=== PATIENT | male | born 1955 | race Caucasian/White ===

== ENCOUNTER 2024-07-17 20:38 | Emergency (ER) | payer MEDICARE, MEDICAID, SELFPAY ==
[2024-07-17 20:52] VITALS: BP 113/75; PULSE 85; PULSE 99; RESP 19; RESP 20; TEMP 36.8; O2SAT 95; O2SAT 97; BMI 31.5
--- NOTE | 2024-07-17 21:14 | XR_ITS ---
Examination: Tibia-Fibula, right , 2 views Technique: Tibia-fibula AP lateral 2 views Date and time of exam: July 17, 2024, 221 hours INDICATIONS: Laceration to the lower leg today, lower leg pain FINDINGS: No acute fracture No dislocation No foreign body. IMPRESSION: No acute fracture
--- NOTE | 2024-07-17 21:15 | XR_ITS ---
Examination: CT brain head without contrast. 2-D sagittal coronal reconstructions Date and time of exam:July 17, 2024 10:19 PM Comparison March 21, 2019 INDICATIONS: Patient fell today with injury to the head, head pain CTDI: vol (mGy):48.4 DLP: (mGycm):938 Technique: Multiple CT axial sections of the brain have been obtained, 5 mm slice thickness. Contrast has not been administered. 2-D sagittal, coronal reconstructions have been obtained Low dose protocols were performed. One or more of the following dose reduction techniques were used; automated exposure control, adjustment of the mA and/or KV according to patient size, use of iterative reconstruction technique. Findings: No significant ventricular enlargement. Intra-axial or extra-axial hemorrhage density is not seen. No mass effect or midline shift Basal cisterns are not remarkable. Fourth ventricle is midline. Cranial vault intact. Impression: Negative for acute hemorrhage, mass effect or midline shift
--- NOTE | 2024-07-17 21:17 | PD.EDRME ---
Rapid Medical Screening Exam RME Arrival date/time: 07/17/24 20:38 68 yo m present to Ed for c/o GLF in shower today, cutting right lower leg? I have greeted and performed a focused initial assessment of this patient. A comprehensive ED assessment and evaluation of the patient, analysis of all test results, and completion of the medical decision making process will be conducted by additional ED providers. Chief Complaint: Wound/Laceration Time Seen by Provider: 07/17/24 20:43 Vital signs: Vital Signs Temperature 98.2 F 07/17/24 20:52 Pulse Rate 85 07/17/24 20:52 Respiratory Rate 20 07/17/24 20:52 Blood Pressure 113/75 07/17/24 20:52 Pulse Oximetry (%) 95 07/17/24 20:52 Oxygen Delivery Method Room Air 07/17/24 20:52
[2024-07-17] MEDS: ACETAMINOPHEN 325 MG TABLET 650 MG PO (23:02)
--- NOTE | 2024-07-18 | PD.EDWOUND ---
ED Wound/Laceration-RME/HPI General Chief Complaint: Wound/Laceration Stated Complaint: RIGHT LEG PAIN/FALL Time Seen by Provider: 07/17/24 20:43 Arrival date/time: 07/17/24 20:38 68 year old male present to emergency room with c/o of GLF today while in the shower injury right lower leg. patient report EMS came and dress the wound. LOCATION: leg SEVERITY: Symptoms are described as being severe with limitations on activities of daily living QUALITY: Symptoms are described as being dull or achy CONTEXT: GLF in bath tube DURATION/TIMING: The symptoms started approximately immediately prior to arrival ago and have been constant this then. ASSOCIATED SYMPTOMS: The patient is unable to identify any other associated symptoms. MODIFYING FACTORS: The patient is unable to identify any alleviating or aggravating symptoms. PERTINENT ROS: no fevers, no headache, no neck or chest pain, no unexplained nausea or vomiting, no focal neurological deficits REVIEW OF SYSTEMS: See History of Present Illness - with the exception of those mentioned in the history of present illness, all other systems reviewed and reported as negative GENERAL: In general the patient is awake, interactive, in an emergency department gurney. HEAD/EYES/EARS/NOSE/THROAT: normo-cephalic, atraumatic, mucus membranes are moist, anicteric, palpebral conjunctiva is pink, trachea is midline. CARDIOVASCULAR: regular rate and regular rhythm, no murmurs, heart sounds are not distant, strong pulses in all four extremities that are equal and symmetric bilateral upper and lower extremities, normal capillary refill. CHEST/PULMONARY: normal chest rise and fall, good air movement, clear to auscultation bilaterally, normal inspiratory to expiratory ratios without evidence of respiratory distress. NECK: No midline/Paraspinal tenderness, no step off ROM/Strenght intact No Kernig and bruzinski sign. No trauma ABDOMEN: soft, not tender, no masses appreciated BACK: normal range of motion without pain. NEUROLOGICAL: cranio-facial features are symmetric, moves all four extremities equally without obvious limitations or weakness. EXTREMITY: right lower leg multi abrasion with V shape 2.5 cm laceration no tenderness to palpation over the long bones or large joints of the bilateral upper extremities, no joint swelling, no joint erythema, no unilateral leg swelling and no peripheral edema. SKIN: warm, dry, well-perfused, no jaundice, no rash, no telangiectasias or petechia. PSYCH: calm, cooperative, no evidence of psychosis or agitation RME / HPI RME / HPI narrative: 07/17/24 20:38 68 yo m present to Ed for c/o GLF in shower today, cutting right lower leg? I have greeted and performed a focused initial assessment of this patient. A comprehensive ED assessment and evaluation of the patient, analysis of all test results, and completion of the medical decision making process will be conducted by additional ED providers. Related Data Home Medications ?Medication ?Instructions ?Recorded ?Confirmed fluticasone propionate 50 2 spray intranasal QDAY 09/07/17 03/21/19 mcg/actuation nasal spray,suspension lansoprazole 15 mg capsule,delayed 15 mg PO QDAY 09/07/17 03/21/19 release tamsulosin 0.4 mg capsule 0.4 mg PO QDAY 09/07/17 03/21/19 topiramate 50 mg tablet 50 mg PO BID 09/07/17 03/21/19 ropinirole 2 mg tablet 2 mg PO ONCE HS 12/16/18 03/21/19 simvastatin 20 mg tablet (Zocor) 20 mg PO QPM 12/16/18 03/21/19 Previous Rx's ?Medication ?Instructions ?Recorded aspirin 81 mg tablet,delayed 81 mg PO QDAY #30 tabs 09/10/17 release (Adult Aspirin Regimen) prednisone 50 mg tablet 50 mg PO QDAY #3 tabs 01/03/19 azithromycin 250 mg tablet See Rx Instructions PO .COMPLEX #6 04/20/22 (Zithromax) tabs loratadine 10 mg tablet 10 mg PO QDAY #30 tabs 04/20/22 promethazine-DM 6.25 mg-15 mg/5 mL 5 ml PO Q6H PRN cough #120 mL 04/20/22 oral syrup dextromethorphan-guaifenesin 10 10 ml PO Q8H PRN cough #500 mL 04/25/22 mg-100 mg/5 mL oral liquid ibuprofen 600 mg tablet 600 mg PO TID PRN pain #30 tabs 04/25/22 albuterol sulfate 1.25 mg/3 mL 1.25 mg (3 mL) inhalation Q6H PRN 01/01/23 solution for nebulization shortness of breath or wheezing #90 mL azithromycin 250 mg tablet See Rx Instructions PO .COMPLEX #6 01/01/23 tabs doxycycline hyclate 100 mg tablet 100 mg PO BID #14 tabs 02/22/23 prednisone 50 mg tablet 50 mg PO QDAY #5 tabs 02/22/23 prednisone 50 mg tablet 50 mg PO QDAY #5 tabs 02/22/23 cephalexin 500 mg capsule 500 mg PO Q8H #30 caps 07/17/24 Allergies Allergy/AdvReac Type Severity Reaction Status Date / Time ALLERGY PILLS Allergy Severe Anaphylaxis Uncoded 07/17/24 20:52 Course Quality Measures VTE prophylaxis Orders Category Date Time Status Wound Care X1 Care 07/17/24 23:[address] head/brain wo con Stat Exams 07/17/24 21:15 Completed XR tibia fibula RT 2V Stat Exams 07/17/24 21:14 Completed Acetaminophen Tab [Tylenol Tab] Med 07/17/24 21:29 Discontinued 650 mg PO X1 ONE cephALEXin [Keflex] Med 07/17/24 23:58 Once 500 mg PO X1 ONE Vital Signs Vital signs: Vital Signs Temperature 98.2 F 07/17/24 20:52 Pulse Rate 85 07/17/24 20:52 Respiratory Rate 20 07/17/24 20:52 Blood Pressure 113/75 07/17/24 20:52 Pulse Oximetry (%) 95 07/17/24 20:52 Oxygen Delivery Method Room Air 07/17/24 20:52 Procedures -ED Laceration Laceration 1: Site: lower extremity Size (cm): 2.5 Description: linear, flap, irregular and contaminated Local Anesthetic: lidocaine 1% Amount of anesthesia used (mL): 10 Pre-repair: wound explored, irrigated extensively, deep structures intact and extensive debridement Skin layer closed with: other (10 julia ) Wound / Laceration Patient data External records reviewed:: [facility] previous records Clinical information provided by:: patient and spouse Social determinants that could affect healthcare access:: none Patient has the following chronic illnesses:: as stated in chart How is presenting disease/condition affected by chronic disease/condition?: uneffected by Evaluation data The following diagnostics were reviewed and interpreted by me:: radiology exam(s) Lab and/or radiology exams considered but not ordered:: n/a Interpretation Summary: ct: no acute findings xray: no acute findings Medications / Prescriptions Medications or Prescriptions considered but not ordered:: n/a Medication administrations:: Medication Administration History Cephalexin HCl (Cephalexin 250 Mg Capsule) 500 mg PO X1 ONE Stop: 07/17/24 23:59 Discontinued Medications Acetaminophen (Acetaminophen 325 Mg Tablet) 650 mg PO X1 ONE Stop: 07/17/24 21:30 Last Admin: 07/17/24 23:02 Dose: 650 mg Documented By: LORI as stated above Consultations Consultation(s) initiated? (list below): No Diagnosis Wound Differential Diagnosis: laceration, abrasion, avulsion of skin and other (head bleed ) Most likely diagnosis given after review of the tests above:: leg laceration Admission Indicated Admission indicated?: not indicated Admission Request Was there a request for admission?: No Disposition Plan Disposition Plan: Discharge Discharge Attestation Discharge Attestation: The patient and all family members were given an opportunity to ask questions and understood the discharge instructions. Discharge instructions specifically effects, indications for sooner follow up or return to the emergency department, and the expected course of current diagnosis. Patient condition: Stable Discharge Plan Plan Patient Disposition: HOME (Self Care) Health Concerns: Return to ED or PCP in 14 days for staple removal Return to ED if symptoms worsen Prescriptions/Referrals Prescriptions/Med Rec: New cephalexin 500 mg capsule 500 mg PO Q8H Qty: 30 0RF No Action ropinirole 2 mg Tablet 2 mg PO ONCE HS Patient Comments: Take 1 tab by mouth once a day 1-3 hours before bedtime. simvastatin [Zocor] 20 mg Tablet 20 mg PO QPM tamsulosin 0.4 mg Capsule,Extended Release 24hr 0.4 mg PO QDAY lansoprazole 15 mg Capsule,Delayed Release(Dr/Ec) 15 mg PO QDAY fluticasone propionate 50 mcg/actuation [place],Suspension 2 spray INTRANASAL QDAY topiramate 50 mg Tablet 50 mg PO BID aspirin [Adult Aspirin Regimen] 81 mg tablet,delayed release (DR/EC) 81 mg PO QDAY Qty: 30 0RF prednisone 50 mg tablet 50 mg PO QDAY Qty: 3 0RF dextromethorphan-guaifenesin 10-100 mg/5 mL liquid 10 ml PO Q8H PRN (Reason: cough) Qty: 500 0RF ibuprofen 600 mg tablet 600 mg PO TID PRN (Reason: pain) Qty: 30 0RF doxycycline hyclate 100 mg tablet 100 mg PO BID Qty: 14 0RF prednisone 50 mg tablet 50 mg PO QDAY Qty: 5 0RF prednisone 50 mg tablet 50 mg PO QDAY Qty: 5 0RF promethazine-DM 6.25-15 mg/5 mL syrup 5 ml PO Q6H PRN (Reason: cough) Qty: 120 0RF azithromycin [Zithromax] 250 mg tablet See Rx Instructions .ROUTE .COMPLEX Qty: 6 0RF Rx Instructions: take 500 mg today (day 1), then 250 mg for 4 days (days 2-5) loratadine 10 mg tablet 10 mg PO QDAY Qty: 30 0RF azithromycin 250 mg tablet See Rx Instructions .ROUTE .COMPLEX Qty: 6 0RF Rx Instructions: For 250 mg dose pack: take 500 mg today (day 1), then 250 mg for 4 days (days 2-5) albuterol sulfate 1.25 mg/3 mL solution for nebulization 1.25 mg inhalation Q6H PRN (Reason: shortness of breath or wheezing) Qty: 90 0RF Problem List Clinical Impression: Laceration of leg Patient/Caregiver Discharge Instructions Education Materials: ED Laceration: All Closures Print Language: Sinhala Stand Alone Forms: Maribel Award Info., Patient Portal Info Letter
[2024-07-18] MEDS: cephALEXin 250 MG CAPSULE 500 MG PO (00:21)
== END 2024-07-18 00:30 | disposition home or self-care (01) ==
PROVIDERS: Emergency Provider Emergency Medicine
DX: S81.811A Laceration without foreign body, right lower leg, initial encounter (principal); S09.90XA Unspecified injury of head, initial encounter; W18.30XA Fall on same level, unspecified, initial encounter; Y93.E1 Activity, personal bathing and showering
CPT/HCPCS: 12001; 70450; 73590; 99283; A9270

== ENCOUNTER 2024-08-09 12:56 | Emergency (ER) | payer MEDICARE, MEDICAID, SELFPAY ==
[2024-08-09 13:08] VITALS: BP 123/82; PULSE 86; RESP 18; TEMP 36.8; O2SAT 95
--- NOTE | 2024-08-09 13:16 | PD.EDEXREM ---
ED Extremity Problem RME/HPI General Chief complaint: Extremity Problem,Nontraumatic Stated complaint: RIGHT LEG INFECTION POST STAPLE REMOVAL Time Seen by Provider: 08/09/24 13:12 Arrival date/time: 08/09/24 12:56 68-year-old male presents to the Emergency Department today for complaints of infection to the right leg/paul patient reports he had julia removed recently and states that he has noted some drainage from the site Limitations: no limitations Related Data Home Medications ?Medication ?Instructions ?Recorded ?Confirmed fluticasone propionate 50 2 spray intranasal QDAY 09/07/17 03/21/19 mcg/actuation nasal spray,suspension lansoprazole 15 mg capsule,delayed 15 mg PO QDAY 09/07/17 03/21/19 release tamsulosin 0.4 mg capsule 0.4 mg PO QDAY 09/07/17 03/21/19 topiramate 50 mg tablet 50 mg PO BID 09/07/17 03/21/19 ropinirole 2 mg tablet 2 mg PO ONCE HS 12/16/18 03/21/19 simvastatin 20 mg tablet (Zocor) 20 mg PO QPM 12/16/18 03/21/19 Previous Rx's ?Medication ?Instructions ?Recorded aspirin 81 mg tablet,delayed 81 mg PO QDAY #30 tabs 09/10/17 release (Adult Aspirin Regimen) prednisone 50 mg tablet 50 mg PO QDAY #3 tabs 01/03/19 azithromycin 250 mg tablet See Rx Instructions PO .COMPLEX #6 04/20/22 (Zithromax) tabs loratadine 10 mg tablet 10 mg PO QDAY #30 tabs 04/20/22 promethazine-DM 6.25 mg-15 mg/5 mL 5 ml PO Q6H PRN cough #120 mL 04/20/22 oral syrup dextromethorphan-guaifenesin 10 10 ml PO Q8H PRN cough #500 mL 04/25/22 mg-100 mg/5 mL oral liquid ibuprofen 600 mg tablet 600 mg PO TID PRN pain #30 tabs 04/25/22 albuterol sulfate 1.25 mg/3 mL 1.25 mg (3 mL) inhalation Q6H PRN 01/01/23 solution for nebulization shortness of breath or wheezing #90 mL azithromycin 250 mg tablet See Rx Instructions PO .COMPLEX #6 01/01/23 tabs doxycycline hyclate 100 mg tablet 100 mg PO BID #14 tabs 02/22/23 prednisone 50 mg tablet 50 mg PO QDAY #5 tabs 02/22/23 prednisone 50 mg tablet 50 mg PO QDAY #5 tabs 02/22/23 cephalexin 500 mg capsule 500 mg PO Q8H #30 caps 07/17/24 clindamycin HCl 300 mg capsule 300 mg PO TID 7 days #21 caps 08/09/24 ibuprofen 600 mg tablet 600 mg PO Q6H #30 tabs 08/09/24 mupirocin 2 % topical ointment 1 applic topical TID 10 days #22 08/09/24 grams Allergies Allergy/AdvReac Type Severity Reaction Status Date / Time ALLERGY PILLS Allergy Severe Anaphylaxis Uncoded 08/09/24 12:59 Review of Systems Review of Systems Systems Reviewed: All systems reviewed, normal except as documented Constitutional Constitutional: Reports system reviewed and no additional complaints, except as documented, Denies fever(s) and Denies headache(s) Eyes Eyes: Reports system reviewed and no additional complaints, except as documented and Denies blurry vision ENT Ears, Nose, Mouth, and Throat: Reports system reviewed and no additional complaints, except as documented, Denies headache(s), Denies nasal congestion and Denies nasal discharge Cardiovascular Cardiovascular: Reports system reviewed and no additional complaints, except as documented, Denies chest pain and Denies dyspnea Respiratory Respiratory: Reports system reviewed and no additional complaints, except as documented, Denies chest congestion, Denies cough and Denies dyspnea Gastrointestinal Gastrointestinal: Reports system reviewed and no additional complaints, except as documented and Denies abdominal pain Integumentary/Breasts Skin/Breast: Reports system reviewed and no additional complaints, except as documented, Denies rash and Reports wounds (Infection right leg) Neurologic Neurologic: Reports system reviewed and no additional complaints, except as documented, Reports as per HPI and Denies headache(s) Past Medical History Past Medical History NEUROLOGIC: Positive Cerebrovascular Accident, Meningitis and Seizures; Negative Neurological Disorders CARDIAC: Positive Cardiac Disorders, Angina and Hypertension; Negative Congestive Heart Failure RESPIRATORY: Positive Chronic Obstructive Pulmonary Disease (COPD), Asthma and Pneumonia GASTROINTESTINAL: Positive Gastrointestinal Disorders and Obesity GENITOURINARY: Negative Genitourinary Disorders or Renal Disease MUSCULOSKELETAL: Negative Musculoskeletal Disorders ENDOCRINE: Negative Endocrine Disorders, Diabetes Mellitus Type 1 or Diabetes Mellitus Type 2 HEMATOLOGIC: Negative Blood Disorders or Sickle Cell Disease PSYCHO/SOCIAL: Positive Schizophrenia and Bipolar Disorder OTHER HISTORY: Positive Chicken Pox, Measles and Mumps; Negative Hospitalization, Autoimmune Disease, Down Syndrome, Developmental Delay, Shingles, Falls, Anesthesia Reactions or Organ Transplant Family History FAMILY HISTORY: Positive Family Cancer Surgical History SURGICAL: Negative Cardiac Surgery, Endocrine Surgery, Ear Surgery, Abdominal Surgery, Nephrectomy, Joint Replacement, Neurologic Surgery or Organ Transplant Social History SMOKING STATUS: Current every day smoker SECOND HAND EXPOSURE: No SUBSTANCE USE: does not use ED Exam General Limitations: Present no limitations General appearance: Present alert and in no apparent distress Head Head exam: Present atraumatic Eye Eye exam: Present normal appearance, PERRL and EOMI ENT ENT exam: Present normal exam, normal oropharynx and mucous membranes moist Neck Neck exam: Present normal inspection, full ROM and trachea midline Chest Chest inspection: Present normal inspection and symmetric chest wall rise Respiratory Respiratory exam: Present normal lung sounds bilaterally Cardiovascular Cardiovascular exam: Present regular rate, normal rhythm and normal heart sounds Abdominal Exam Abdominal exam: Present soft and normal bowel sounds Extremities Exam Extremities exam: Present normal inspection and full ROM Back Exam Back exam: Present normal inspection and full ROM Neurological Exam Neurological exam: Present alert, oriented X3, CN II-XII intact, normal gait and reflexes normal; Absent motor sensory deficit Psychiatric Psychiatric exam: Present normal affect and normal mood Skin Skin exam: Present warm, dry and other (Right paul infection) Course Quality Measures none Orders Category Date Time Status Ibuprofen Tab [Motrin Tab] Med 08/09/24 13:16 Discontinued 800 mg PO X1 ONE Lidocaine 1% 20 ml [Xylocaine 1% 20 ML] Med 08/09/24 13:16 Discontinued 2.1 ml INFL X1 ONE cefTRIAXone [Rocephin] Med 08/09/24 13:16 Discontinued 1,000 mg IM X1 ONE Vital Signs Vital signs: Vital Signs Temperature 98.2 F 08/09/24 13:08 Pulse Rate 86 08/09/24 13:08 Respiratory Rate 18 08/09/24 13:08 Blood Pressure 123/82 08/09/24 13:08 Pulse Oximetry (%) 95 08/09/24 13:08 Oxygen Delivery Method Room Air 08/09/24 13:08 O2 saturation 95% r.a wnl Extremity Problem MDM Narrative MDM Narrative:: 68-year-old male presents to the Emergency Department today for complaints of infection to the right leg/paul patient reports he had julia removed recently and states that he has noted some drainage from the site On exam patient well-appearing patient is not appear toxic no acute distress on exam patient has wound right paul with some drainage I do not suspect patient has deep infection patient hemodynamically stable Patient given injection of Rocephin discharged with antibiotics Patient discharged home in no distress to follow-up with primary care doctor in the next 24 to 48 hours and for any worsening symptoms to return to the ER immediately Patient data External records reviewed:: [facility] previous records Clinical information provided by:: patient Social determinants that could affect healthcare access:: none Patient has the following chronic illnesses:: None How is presenting disease/condition affected by chronic disease/condition?: no chronic disease Evaluation data The following diagnostics were reviewed and interpreted by me:: other (specify) Lab and/or radiology exams considered but not ordered:: Consider not ordered Interpretation Summary: N/A Medications / Prescriptions Medications or Prescriptions considered but not ordered:: Given Medication administrations:: Medication Administration History Discontinued Medications Ceftriaxone Sodium (Ceftriaxone Sod Inj 1,000 Mg Vial) 1,000 mg IM X1 ONE Stop: 08/09/24 13:17 Last Admin: 08/09/24 13:44 Dose: 1,000 mg Documented By: VIKY Ibuprofen (Ibuprofen Tab 400 Mg Tablet) 800 mg PO X1 ONE Stop: 08/09/24 13:17 Last Admin: 08/09/24 13:44 Dose: 800 mg Documented By: VIKY Lidocaine HCl (Lidocaine Hcl 1% 20 Ml Vial) 2.1 ml INFL X1 ONE Stop: 08/09/24 13:17 Last Admin: 08/09/24 13:44 Dose: 2.1 ml Documented By: VIKY Given Consultations Consultation(s) initiated? (list below): No Diagnosis Extremity Problem Differential Diagnosis: other (Laceration, abrasion) Most likely diagnosis given after review of the tests above:: Laceration Admission Indicated Admission indicated?: not indicated Admission Request Was there a request for admission?: No Disposition Plan Disposition Plan: Discharge Discharge Attestation Discharge Attestation: The patient and all family members were given an opportunity to ask questions and understood the discharge instructions. Discharge instructions specifically effects, indications for sooner follow up or return to the emergency department, and the expected course of current diagnosis. Patient condition: Stable Discharge Plan Plan Patient Disposition: HOME (Self Care) Discharge Disposition comment: Stable Prescriptions/Referrals Prescriptions/Med Rec: New clindamycin HCl 300 mg capsule 300 mg PO TID 7 Days Qty: 21 0RF mupirocin 2 % ointment 1 applic topical TID 10 Days Qty: 22 0RF ibuprofen 600 mg tablet 600 mg PO Q6H Qty: 30 0RF No Action ropinirole 2 mg Tablet 2 mg PO ONCE HS Patient Comments: Take 1 tab by mouth once a day 1-3 hours before bedtime. simvastatin [Zocor] 20 mg Tablet 20 mg PO QPM tamsulosin 0.4 mg Capsule,Extended Release 24hr 0.4 mg PO QDAY lansoprazole 15 mg Capsule,Delayed Release(Dr/Ec) 15 mg PO QDAY fluticasone propionate 50 mcg/actuation [place],Suspension 2 spray INTRANASAL QDAY topiramate 50 mg Tablet 50 mg PO BID aspirin [Adult Aspirin Regimen] 81 mg tablet,delayed release (DR/EC) 81 mg PO QDAY Qty: 30 0RF prednisone 50 mg tablet 50 mg PO QDAY Qty: 3 0RF dextromethorphan-guaifenesin 10-100 mg/5 mL liquid 10 ml PO Q8H PRN (Reason: cough) Qty: 500 0RF ibuprofen 600 mg tablet 600 mg PO TID PRN (Reason: pain) Qty: 30 0RF doxycycline hyclate 100 mg tablet 100 mg PO BID Qty: 14 0RF prednisone 50 mg tablet 50 mg PO QDAY Qty: 5 0RF prednisone 50 mg tablet 50 mg PO QDAY Qty: 5 0RF promethazine-DM 6.25-15 mg/5 mL syrup 5 ml PO Q6H PRN (Reason: cough) Qty: 120 0RF azithromycin [Zithromax] 250 mg tablet See Rx Instructions .ROUTE .COMPLEX Qty: 6 0RF Rx Instructions: take 500 mg today (day 1), then 250 mg for 4 days (days 2-5) loratadine 10 mg tablet 10 mg PO QDAY Qty: 30 0RF azithromycin 250 mg tablet See Rx Instructions .ROUTE .COMPLEX Qty: 6 0RF Rx Instructions: For 250 mg dose pack: take 500 mg today (day 1), then 250 mg for 4 days (days 2-5) albuterol sulfate 1.25 mg/3 mL solution for nebulization 1.25 mg inhalation Q6H PRN (Reason: shortness of breath or wheezing) Qty: 90 0RF cephalexin 500 mg capsule 500 mg PO Q8H Qty: 30 0RF Problem List Clinical Impression: Wound infection Patient/Caregiver Discharge Instructions Education Materials: ED Wound Check (Infection) Additional Instructions: Please follow up with your primary care doctor in the next 24-48hrs for any worsening symptoms return here immediately Print Language: Tajik Stand Alone Forms: Maribel Award Info., Patient Portal Info Letter PA/[employer] APPLICATIONS MANAGER Supervising Physician PA/[employer] APPLICATIONS MANAGER Supervising Physician: Dr cyr
[2024-08-09] MEDS: cefTRIAXone SOD INJ 1,000 MG VIAL 1000 MG IM (13:44)
[2024-08-09] MEDS: LIDOCAINE HCL 1% 20 ML VIAL 2.1 ML INFL (13:44)
[2024-08-09] MEDS: IBUPROFEN TAB 400 MG TABLET 800 MG PO (13:44)
== END 2024-08-09 14:03 | disposition home or self-care (01) ==
LOC: SERX 13:49
PROVIDERS: Emergency Provider Emergency Medicine
DX: L08.9 Local infection of the skin and subcutaneous tissue, unspecified (principal)
CPT/HCPCS: 96372; 99283; J0696; J3490; A9270

== ENCOUNTER 2025-01-19 23:48 | Emergency (ER) | payer MEDICARE, MEDICAID, SELFPAY ==
[2025-01-20 00:10] VITALS: BP 150/82; PULSE 84; RESP 20; TEMP 36.9; O2SAT 95
--- NOTE | 2025-01-20 00:50 | XR_ITS ---
EXAMINATION: PA chest single view TECHNIQUE: Upright PA chest single view Date and time: January 20, 2025, 0056 hours INDICATION: Wheezing today. FINDINGS: Minimal prominence left ventricle Ectatic thoracic aorta. No pneumonia or pulmonary edema. Mild osteopenia. IMPRESSION: No pneumonia or pulmonary edema
[2025-01-20 00:56] VITALS: BP 126/75; BP 129/80; BP 133/84; PULSE 79; PULSE 81; PULSE 84
--- NOTE | 2025-01-20 01:00 | XR_ITS ---
Examination: Abdomen sonogram, Limited Date and time of exam: January 20, 2025, 0141 hours INDICATIONS: Nausea abdominal pain onset today TECHNIQUE: Multiple transabdominal sonographic images abdomen FINDINGS: Normal gallbladder. 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
--- NOTE | 2025-01-20 01:03 | EKG_ITS ---
[facility] (Formerly [facility]) Test Date: 2025-01-20 Pat Name: FANTASMA FLAHERTY Department: Room: - Gender: Male [employer]: : 1955 Requested By: Laury Ellsworth Order Number: [id number] Reading MD: Laury Ellsworth Measurements Intervals [place] Rate: 74 P: 34 VA: 151 QRS: -54 QRSD: 106 T: 17 QT: 434 QTc: 484 Interpretive Statements SINUS RHYTHM LOW QRS VOLTAGE IN PRECORDIAL LEADS [QRS DEFLECTION < 1.0 mV IN CHEST LEADS] INCOMPLETE RIGHT BUNDLE BRANCH BLOCK [90+ ms QRS DURATION, TERMINAL R IN V1/V2, 40+ ms S IN I/aVL/V4/V5/V6] LEFT ANTERIOR FASCICULAR BLOCK [QRS AXIS <= -45, QR IN I, RS IN II] PROBABLE LATERAL MYOCARDIAL INFARCTION , PROBABLY OLD [35 ms Q WAVE IN I/aVL/V5/V6] INFERIOR MYOCARDIAL INFARCTION , PROBABLY OLD [40+ ms Q WAVE AND/OR ST/T ABNORMALITY IN II/aVF] Compared to ECG 05/09/2022 10:24:53 Low QRS voltage now present Myocardial infarct finding still present /store/S0/[id number]/ecg/[id number].pdf
--- NOTE | 2025-01-20 01:05 | PD.EDABDPN ---
ED Abdominal Pain RME/HPI General Chief Complaint: Headache Stated complaint: HEADACHE, DIZZY, ABD PAIN Time seen by provider: 01/20/25 00:28 Arrival date/time: 01/19/25 23:48 RME / HPI RME / HPI narrative: CC: dizziness Patient is a 69-year-old male with a past medical history of hypertension, hyperlipidemia, history of CVA (2018), history of COPD, continues to vape & former cigarette user who presented to the emergency room with a chief complaint of headache and dizziness over the last couple days. Patient stated dizziness occurs at rest and with exertion. Denied syncope. Per family member in room?increase cough that is productive and more frequent. Wheezing by family. Patient feels short of breath after walking up 18 stairs. Patient denied history of AL or heart failure. Patient denies chest pain. Patient denies sick contacts. Patient complaining of right upper quadrant pain. Positive for diarrhea 4 days ago. Patient stated he does not take any albuterol at home for hx of COPD. CBC CMP Troponin EKG Chest xray gallbladder CT chest abd pelvis Related Data Home Medications ?Medication ?Instructions ?Recorded ?Confirmed lansoprazole 15 mg capsule,delayed 15 mg PO QDAY 09/07/17 03/21/19 release tamsulosin 0.4 mg capsule 0.4 mg PO QDAY 09/07/17 03/21/19 Previous Rx's ?Medication ?Instructions ?Recorded aspirin 81 mg tablet,delayed 81 mg PO QDAY #30 tabs 09/10/17 release (Adult Aspirin Regimen) loratadine 10 mg tablet 10 mg PO QDAY #30 tabs 04/20/22 ibuprofen 600 mg tablet 600 mg PO Q6H #30 tabs 08/09/24 albuterol sulfate 90 mcg/actuation 1 inh inhalation QID PRN shortness 01/20/25 aerosol inhaler (Ventolin HFA) of breath or wheezing #8.5 grams azithromycin 250 mg tablet 250 mg PO QDAY COPD exacerbation 3 01/20/25 days #3 tabs fluticasone fur. 100 mcg-umeclid 1 inh inhalation Q24H COPD #28 ea 01/20/25 62.5 mcg-vilant 25 mcg inhalat.powder (Trelegy Ellipta) prednisolone 5 mg tablet 5 mg PO QDAY 5 days #5 tabs 01/20/25 (Millipred) Allergies Allergy/AdvReac Type Severity Reaction Status Date / Time ALLERGY PILLS Allergy Severe Anaphylaxis Uncoded 01/19/25 23:50 Review of Systems Review of Systems Narrative Review of Systems: General appearance: NO weight change, NO fatigue, NO weakness, subjective fever, NO chills, NO night sweats Skin: NO rash, NO itching, NO sores, NO moles HEENT: NO Trauma, NO nausea, NO vomiting, NO visual changes, NO blurry vision, NO double vision, NO tinnitus, NO vertigo, NO ear discharge, NO rhinorrhea, NO stuffiness, NO sneezing, NO allergy, NO epistaxis. NO Hoarseness, NO sore throat, NO swollen neck. Cardiac: NO Palpitations, NO dyspnea on exertion, NO orthopnea, NO paroxysmal nocturnal dyspnea, NO edema Respiratory: Yes Shortness of Breath, Yes Wheezing, YEs Cough, Yes Sputum, NO hemoptysis GI:NO appetite, NO nausea, NO vomiting, NO dysphagia, NO changes in bowel frequency, NO stool color, NO diarrhea, NO constipation, NO hemetemesis, NO hemorrhoids, NO melena, NO hematechezia, Yes abdominal pain, NO jaundice Renal: NO frequency, NO hesitancy, NO urgency, NO hematuria, NO nocturia, NO incontinence MSK: NO muscle weakness, NO gout, NO arthritis, NO muscle stiffness Neuro: NO headaches, NO tremors, NO weakness, NO paralysis, NO seizures, NO loss of consciousness, NO numbness. Hem: NO anemia, NO easy bruising/bleeding, NO petechiae, NO purpura Endo: NO heat/cold intolerance, NO excessive sweating, NO polyuria, NO polydipsia, NO polyphagia, NO thyroid problems, NO diabetes Pysch: NO mood, NO anxiety, NO depression ED Exam Narrative Physical exam: General Appearance: Alert & Oriented X3, well-nourished male who is lying in bed in mild distress secondary to wheezing HEENT: Skull symmetrical and atraumatic. Conjunctivae pale pink and moist. Pupils equal, round, reactive to light and accommodation (PERRL). External ear without lesion or discharge. Straight, nares patient, mucosa pink, no discharge. Cardio: Normal Rate and Rhythm with S1 and S2 heart sounds. No murmurs or extra heart sounds auscultated. No bruits on carotid auscultation. Peripheral edema 1+ Lungs: Symmetric with poor airway expansion. Chest and back non-tender. Reduced breath sounds bilaterally w/ wheezing and rhochi noted. Abdomen: Mild tenderness, Non-distended, Normal Reactive Bowel Sounds, positive alan sign Neuro: Alert, cooperative, oriented to person, place, and time. Speech clear. CN grossly intact. Upper motor strength 5/5 and Lower motor strength 5/5. Sensation intact. Course Course Course Narrative: CBC CMP troponin EKG BNP gallbadder US, Ct chest abd pelvis Quality Measures none Orders Category Date Time Status Bedside COVID-19 Antigen Test NOW Care 01/20/25 00:[address] Screening NOW Care 01/20/25 01:02 Completed Graphite Pan Drier Tender Q4H START 00 Care 01/20/25 01:03 Completed EKG (ED ONLY) *Do not use* NOW Care 01/20/25 01:37 Completed Incentive Spirometry Treatment NOW Care 01/20/25 04:22 Completed Insert IV NOW Care 01/20/25 01:08 Completed Orthostatic Vitals X1 Care 01/20/25 00:52 Completed Saline [Insert IV] NOW Care 01/20/25 01:[address] chest abdomen pelvis wo Stat Exams 01/20/25 01:[address] head/brain wo con Stat Exams 01/20/25 01:14 Taken EKG (ED Only) Stat Exams 01/20/25 01:37 Ordered US gall bladder Stat Exams 01/20/25 01:00 Taken XR chest 1V Stat Exams 01/20/25 00:50 Taken Alcohol, Blood Medical Stat Lab 01/20/25 01:10 Completed Alcohol, Urine Stat Lab 01/20/25 02:34 Completed Ammonia Stat Lab 01/20/25 01:10 Completed BNP [B-Type Natriuretic Peptide] Stat Lab 01/20/25 01:10 Completed Bilirubin,Direct Stat Lab 01/20/25 01:10 Completed Blood Culture (Lab) Stat Lab 01/20/25 02:34 Received CBC Stat Lab 01/20/25 01:10 Completed CMP [Comprehensive Metabolic Panel] Stat Lab 01/20/25 01:10 Completed CRP [C-Reactive Protein] Stat Lab 01/20/25 01:10 Completed Cocci Serology IgM with reflex to IgG [Cocci Serology, Lab 01/20/25 02:34 Received Unk History] Routine Drug Screen,Urine Stat Lab 01/20/25 02:34 Completed ESR [Sed Rate (ESR)] Stat Lab 01/20/25 01:10 Completed Influenza A & B Rapid Panel Stat Lab 01/20/25 01:18 Completed Lactate (Lactic Acid) Stat Lab 01/20/25 01:10 Completed Lipase Stat Lab 01/20/25 01:10 Completed Magnesium Stat Lab 01/20/25 01:10 Completed Procalcitonin Stat Lab 01/20/25 01:10 Completed TSH [Thyroid Stimulating Hormone] Stat Lab 01/20/25 01:10 Completed Troponin I Stat Lab 01/20/25 01:10 Completed Urinalysis, C/S if Indicated Stat Lab 01/20/25 02:34 Completed Albuterol/Ipratr Rt Marylu [Duoneb Rt Marylu] Med 01/20/25 00:50 Discontinued 3 ml INH X1 ONE Azithromycin Inj [Zithromax Inj] 500 mg Med 01/20/25 01:54 Pending Sodium Chloride 0.9% 250 ml [Ns] 250 ml IV QDAY Azithromycin Inj [Zithromax Inj] 500 mg Med 01/20/25 02:00 Discontinued Sodium Chloride 0.9% 250 ml [Ns] 250 ml IV X1 Famotidine Inj [Pepcid Inj] Med 01/20/25 01:12 Discontinued 20 mg IVP X1 ONE MethylPREDNISolone. [SoluMEDROL Inj] Med 01/20/25 00:53 Discontinued 40 mg IVP X1 ONE MethylPREDNISolone. [SoluMEDROL Inj] Med 01/20/25 01:03 Discontinued 60 mg IVP X1 ONE MethylPREDNISolone.* [SoluMEDROL Inj] Med 01/20/25 01:12 Discontinued 125 mg IVP X1 ONE Ondansetron Inj [Zofran Inj] Med 01/20/25 01:12 Discontinued 4 mg IVP X1 ONE Pantoprazole Inj [Protonix Inj] Med 01/20/25 01:12 Discontinued 40 mg IVP X1 ONE Sodium Chloride 0.9% 1000 ml [Ns] 1,000 ml Med 01/20/25 01:12 Discontinued IV 999 mls/hr predniSONE Med 01/20/25 00:55 Discontinued 40 mg PO X1 ONE EKG (RT) Stat RT 01/20/25 01:03 Draft same as above Vital Signs Vital signs: Vital Signs Temperature 98.4 F 01/20/25 00:10 Pulse Rate 84 01/20/25 00:10 Respiratory Rate 20 01/20/25 00:10 Blood Pressure 150/82 H 01/20/25 00:10 Pulse Oximetry (%) 95 01/20/25 00:10 Oxygen Delivery Method Room Air 01/20/25 00:10 Abdominal Pain MDM Patient data External records reviewed:: [facility] previous records Clinical information provided by:: patient and family Social determinants that could affect healthcare access:: none Patient has the following chronic illnesses:: hypertension, hyperlipidemia, history of CVA (2018), history of COPD, continues to vape How is presenting disease/condition affected by chronic disease/condition?: exacerbated by (COPD & vaping ) Evaluation data The following diagnostics were reviewed and interpreted by me:: lab results and radiology exam(s) Lab and/or radiology exams considered but not ordered:: None Interpretation Summary: Patient is currently is a 69-year-old male with a past medical history of hypertension, hyperlipidemia, history of CVA (2018), history of COPD, continues to vape & former cigarette user who presented with a chieft complain of dizziness likely secondary to COPD exacerbation as [place] and has been non-adherent to any medication for his COPD. No pneumonia noted on chest x-ray. Mild Leukocytosis. EKG negative no ST elevation. Troponin negative. Patient complaining of right quadrant pain as well, gallbladder US negative for cholethiasis. CT abdomen/pelvis noted multiple gallstones, please avoid fatty foods. Medications / Prescriptions Medications or Prescriptions considered but not ordered:: None Medication administrations:: Medication Administration History Azithromycin 500 mg/ Sodium (Chloride) 250 mls @ 250 mls/hr IV QDAY HARPREET Stop: 01/27/25 01:53 Discontinued Medications Albuterol/Ipratropium (Albuterol/Ipratropium (Duoneb) Rt Marylu 3 Ml Nebu) 3 ml INH X1 ONE Stop: 01/20/25 00:51 Last Admin: 01/20/25 01:08 Dose: 3 ml Documented By: HARMAN Famotidine (Famotidine Inj 10 Mg/Ml Vial 2 Ml) 20 mg IVP X1 ONE Stop: 01/20/25 01:13 Last Admin: 01/20/25 01:23 Dose: 20 mg Documented By: LURDES Sodium Chloride (Ns) 1,000 mls @ 999 mls/hr IV .Q1H1M ONE Stop: 01/20/25 02:12 Last Infusion: 01/20/25 02:09 Dose: Infused Documented By: Admin: 01/20/25 01:21 Dose: 999 mls/hr Documented By: LURDES Azithromycin 500 mg/ Sodium (Chloride) 250 mls @ 250 mls/hr IV X1 ONE Stop: 01/20/25 02:59 Last Infusion: 01/20/25 03:23 Dose: Infused Documented By: Admin: 01/20/25 02:26 Dose: 250 mls/hr Documented By: LURDES Methylprednisolone Sodium Succinate (Methylprednisolone Sod Succ 40 Mg/Ml Vial) 40 mg IVP X1 ONE Stop: 01/20/25 00:54 Last Admin: 01/20/25 01:00 Dose: Not Given Documented By: LURDES Non-Admin Reason: Cancelled by Provider Methylprednisolone Sodium Succinate (Methylprednisolone Sod Succ 40 Mg/Ml Vial) 60 mg IVP X1 ONE Stop: 01/20/25 01:04 Last Admin: 01/20/25 01:20 Dose: Not Given Documented By: LURDES Non-Admin Reason: Cancelled by Provider Methylprednisolone Sodium Succinate (Methylprednisolone Sod Succ 62.5 Mg/Ml 2ml Vial) 125 mg IVP X1 ONE Stop: 01/20/25 01:13 Last Admin: 01/20/25 01:22 Dose: 125 mg Documented By: LURDES Ondansetron HCl (Ondansetron Inj 2 Mg/Ml Inj 2 Ml) 4 mg IVP X1 ONE; Protocol Stop: 01/20/25 01:13 Last Admin: 01/20/25 01:23 Dose: 4 mg Documented By: LURDES Pantoprazole Sodium (Pantoprazole Inj 40 Mg Vial) 40 mg IVP X1 ONE Stop: 01/20/25 01:13 Last Admin: 01/20/25 01:22 Dose: 40 mg Documented By: LURDES Prednisone (Prednisone 20 Mg Tablet) 40 mg PO X1 ONE Stop: 01/20/25 00:56 Last Admin: 01/20/25 01:20 Dose: Not Given Documented By: LURDES Non-Admin Reason: Cancelled by Provider same as above Consultations Consultation(s) initiated? (list below): No Diagnosis Differential diagnosis abdominal pain: abdominal pain, diverticulitis, pancreatitis and other Most likely diagnosis given after review of the tests above:: Patient is currently is a 69-year-old male with a past medical history of hypertension, hyperlipidemia, history of CVA (2018), history of COPD, continues to vape & former cigarette user who presented with a chieft complain of dizziness likely secondary to COPD exacerbation as [place] and has been non-adherent to any medication for his COPD. No pneumonia noted on chest x-ray. Mild Leukocytosis. EKG negative no ST elevation. Troponin negative. Patient complaining of right quadrant pain as well, gallbladder US negative for cholethiasis. CT abdomen/pelvis noted multiple gallstones, please avoid fatty foods. #COPD exacerbation Admission Indicated Admission indicated?: not indicated Admission Request Was there a request for admission?: No Admission Attestation Admission request attestation: Not required as patient not requiring oxygen and no pneumonia noted on chest x-ray Disposition Plan Disposition Plan: Discharge Discharge Attestation Discharge Attestation: The patient and all family members were given an opportunity to ask questions and understood the discharge instructions. Discharge instructions specifically effects, indications for sooner follow up or return to the emergency department, and the expected course of current diagnosis. Patient condition: Stable Discharge Plan Plan Patient Disposition: HOME (Self Care) Patient condition on transfer: Stable Health Concerns: Instructions: -Please complete course of antibiotics with azithromycin 250 mg once daily for the next 3 days. -Please finish course of steriods, prednisolone 5 mg one daily, for the next 5 days -Please take Trelegy once daily to magnage your COPD. -Albuterol 2 puffs every 4-6 hours for 3 days to help keep the airways open. Then as needed for cough or shortness of breath. -No physical exertion for 3 days to help rest the lungs. ?No smoking or exposure to smoking or pets or dust or cold or humidity. -Given your gallbladder symptoms, please try to avoid fatty foods. -Please follow up with your primary care provider within one week of discharge -If your symptoms worsen,please seek immediate medical attention and return to your nearest emergency room -If you do not have a primary care provider, you may follow up at the [facility] at [address], [place] [address], Prescriptions/Referrals Prescriptions/Med Rec: New azithromycin 250 mg tablet 250 mg PO QDAY 3 Days Qty: 3 0RF Rx Instructions: start on day 2 of therapy albuterol sulfate [Ventolin HFA] 90 mcg/actuation HFA aerosol inhaler 1 inh inhalation QID PRN (Reason: shortness of breath or wheezing) Qty: 8.5 0RF Trelegy Ellipta 100-62.5-25 mcg blister with device 1 inh inhalation Q24H Qty: 28 0RF prednisolone [Millipred] 5 mg tablet 5 mg PO QDAY 5 Days Qty: 5 0RF Continued tamsulosin 0.4 mg Capsule,Extended Release 24hr 0.4 mg PO QDAY lansoprazole 15 mg Capsule,Delayed Release(Dr/Ec) 15 mg PO QDAY aspirin [Adult Aspirin Regimen] 81 mg tablet,delayed release (DR/EC) 81 mg PO QDAY Qty: 30 0RF ibuprofen 600 mg tablet 600 mg PO Q6H Qty: 30 0RF loratadine 10 mg tablet 10 mg PO QDAY Qty: 30 0RF Discontinued ropinirole 2 mg Tablet 2 mg PO ONCE HS Patient Comments: Take 1 tab by mouth once a day 1-3 hours before bedtime. simvastatin [Zocor] 20 mg Tablet 20 mg PO QPM fluticasone propionate 50 mcg/actuation Bude,Suspension 2 spray INTRANASAL QDAY topiramate 50 mg Tablet 50 mg PO BID prednisone 50 mg tablet 50 mg PO QDAY Qty: 3 0RF dextromethorphan-guaifenesin 10-100 mg/5 mL liquid 10 ml PO Q8H PRN (Reason: cough) Qty: 500 0RF ibuprofen 600 mg tablet 600 mg PO TID PRN (Reason: pain) Qty: 30 0RF doxycycline hyclate 100 mg tablet 100 mg PO BID Qty: 14 0RF prednisone 50 mg tablet 50 mg PO QDAY Qty: 5 0RF prednisone 50 mg tablet 50 mg PO QDAY Qty: 5 0RF promethazine-DM 6.25-15 mg/5 mL syrup 5 ml PO Q6H PRN (Reason: cough) Qty: 120 0RF azithromycin [Zithromax] 250 mg tablet See Rx Instructions .ROUTE .COMPLEX Qty: 6 0RF Rx Instructions: take 500 mg today (day 1), then 250 mg for 4 days (days 2-5) azithromycin 250 mg tablet See Rx Instructions .ROUTE .COMPLEX Qty: 6 0RF Rx Instructions: For 250 mg dose pack: take 500 mg today (day 1), then 250 mg for 4 days (days 2-5) albuterol sulfate 1.25 mg/3 mL solution for nebulization 1.25 mg inhalation Q6H PRN (Reason: shortness of breath or wheezing) Qty: 90 0RF cephalexin 500 mg capsule 500 mg PO Q8H Qty: 30 0RF Referrals: Kurt Dan PA-C [Primary Care Provider] - In 1 week Problem List Clinical Impression: Acute exacerbation of chronic obstructive pulmonary disease (COPD) Patient/Caregiver Discharge Instructions Education Materials: Chronic Lung Disease Quit Smoking Print Language: Danish Stand Alone Forms: Maribel Award Info., Patient Portal Info Letter
[2025-01-20] MEDS: ALBUTEROL/IPRATROPIUM (Duoneb) RT SOL 3 ML NEBU INH (01:08)
[2025-01-20 01:11] VITALS: PULSE 76; RESP 18; O2SAT 98
[2025-01-20 01:13] VITALS: PULSE 78
--- NOTE | 2025-01-20 01:14 | XR_ITS ---
Examination: CT chest, without intravenous contrast. CT abdomen, without intravenous contrast. CT pelvis, without intravenous contrast. 2-D sagittal and coronal reconstructions. 3-D reconstructions. Date and time of exam: January 20, 2025, 0222 hours, comparison 11/26/2018 INDICATIONS: Shortness of breath chest pain abdominal pain beginning 2 weeks ago CTDI vol (mgy) 11.5 DLP (MGycm) 915 Technique: Multiple CT images, 3.0 mm slice thickness, obtained chest, abdomen, pelvis, with the high-resolution 64 slice scanner.. Sagittal and coronal 2-D reconstructions are obtained. 3-D reconstructions Low dose protocols were performed. One or more of the following dose reduction techniques were used; automated exposure control, adjustment of the mA and/or KV according to patient size, use of iterative reconstruction technique. Findings: Mild thoracic aortic calcification no thoracic aortic aneurysm Pulmonary artery segments are not enlarged. No paratracheal tracheobronchial or bronchopulmonary adenopathy. No pneumonia, pulmonary edema or pleural disease No visualized liver or splenic lesion No gallstones No pancreatic or adrenal mass Moderate left prominent right renal scar formation Bilateral renal calculi, the largest right kidney 10 mm No hydronephrosis or ureteral calculi Normal appendix Aneurysmal dilatation infrarenal abdominal aorta, AP dimension 4.1 cm mediolateral dimension 4.1 cm No bowel obstruction Colonic diverticulosis, no diverticulitis Normal seminal vesicles Mild prostatomegaly with multiple prostate calcifications Mild urinary bladder wall thickening no bladder calculi Prominent osteopenia IMPRESSION: No mediastinal lymphadenopathy No pneumonia, pulmonary edema or pleural disease Moderate left prominent right renal scar formation Bilateral renal calculi, no hydronephrosis or ureteral calculi Normal appendix Colonic diverticulosis, no diverticulitis AP dimension infrarenal abdominal aorta 4.1 cm
--- NOTE | 2025-01-20 01:14 | XR_ITS ---
Examination: CT brain head without contrast. 2-D sagittal coronal reconstructions Date and time of exam: January 20, 2025, 0218 hours INDICATIONS: Headaches dizziness episodes beginning 2 weeks ago CTDI: vol (mGy): 54.5 DLP: (mGycm): 915 Technique: Multiple CT axial sections of the brain have been obtained, 5 mm slice thickness. Contrast has not been administered. 2-D sagittal, coronal reconstructions have been obtained Low dose protocols were performed. One or more of the following dose reduction techniques were used; automated exposure control, adjustment of the mA and/or KV according to patient size, use of iterative reconstruction technique. Findings: No significant ventricular enlargement. Intra-axial or extra-axial hemorrhage density is not seen. No mass effect or midline shift Basal cisterns are not remarkable. Fourth ventricle is midline. Cranial vault intact. Impression: Negative for acute hemorrhage, mass effect or midline shift Advise clinical correlation and follow-up accordingly
[2025-01-20] MEDS: SODIUM CHLORIDE 0.9% 1000 ML 1,000 ML 999 ML IV (01:21)
[2025-01-20] MEDS: MethylPREDNISolone SOD SUCC 62.5 MG/ML 2ML VIAL 125 MG IVP (01:22)
[2025-01-20] MEDS: FAMOTIDINE INJ 10 MG/ML VIAL 2 ML 20 MG IVP (01:23)
[2025-01-20] MEDS: ONDANSETRON INJ 2 MG/ML INJ 2 ML 4 MG IVP (01:23)
[2025-01-20 01:26] LABS: Basophils # (Auto) 0.1 Thou/mm3 (0.0-0.2); Basophils % (Auto) 1 % (0-2.5); Eosinophils # (Auto) 0.4 Thou/mm3 (0.0-0.5); Eosinophils % (Auto) 3 % (0-10); Hematocrit 44.5 % (41.0-53.0); Hemoglobin 14.5 g/dL (13.5-16.0); Immature Granulocytes Auto 0.07 Thou/mm3 (0.00-0.00); Lymphocytes # (Auto) 4.4 Thou/mm3 (1.0-4.8); Lymphocytes % (Auto) 37 % (10-50); Mean Corpuscular HGB Conc 32.6 g/dl (31.0-37.0); Mean Corpuscular Hemoglobin 30.2 pg (25.0-35.0); Mean Corpuscular Volume 93 fL (80-100); Monocytes # (Auto) 1.0 Thou/mm3 (0.0-0.8); Monocytes % (Auto) 9 % (0-12); Neutrophils # (Auto) 5.8 Thou/mm3 (1.8-7.7); Neutrophils % (Auto) 49 % (37-80); Nucleated Red Blood Cell # 0.00 Thou/mm3 (0.00-0.00); Nucleated Red Blood Cell % 0 /100 WBC (0); Platelet Count 260 Thou/mm3 (140-440); RDW Standard Deviation 45.2 fL (35.1-43.9); Red Blood Count 4.80 Miln/mm3 (4.50-5.90); White Blood Count 11.7 Thou/mm3 (3.8-10.6)
[2025-01-20 01:27] LABS: Lactate (Lactic Acid) 1.7 mMol/L (0.4-2.0)
[2025-01-20 01:49] LABS: Ammonia < 10 uMol/L (11-32)
[2025-01-20 01:56] LABS: Sed Rate (ESR) 24 mm/hr (0-20)
[2025-01-20 02:05] LABS: Influenza A Ag Negative; Influenza B Ag Negative
[2025-01-20 02:12] LABS: Alanine Aminotransferase 17 U/L (10-49); Albumin, Serum 4.4 gm/dL (3.4-4.8); Albumin/Globulin Ratio 1.6 (1.2-2.2); Alcohol, Blood Medical < 3.0 mg/dL (0-10.0); Alkaline Phosphatase 79 U/L (46-116); Anion Gap 11 (7-16); Aspartate Amino Transferase < 8 U/L (0-34); BUN/Creatinine Ratio 11 Ratio (12-20); Bilirubin,Direct < 0.1 mg/dL (0.0-0.3); Bilirubin,Total 0.3 mg/dL (0.3-1.2); Blood Urea Nitrogen 11 mg/dL (9-23); C-Reactive Protein < 0.5 mg/dL (0.0-0.9); Calcium 9.2 mg/dL (8.3-10.6); Calcium (Corrected) 9.2 mg/dL (8.5-10.1); Carbon Dioxide 20.8 mMol/L (20.0-31.0); Chloride 109 mMol/L (98-107); Creatinine (Component) 1.0 mg/dL (0.6-1.3); Globulin 2.7 gm/dL (2.3-3.5); Glucose 96 mg/dL (74-106); Lipase 34 U/L (12-53); Magnesium 2.1 mg/dL (1.6-2.6); Osmolality,Calculated 280 (275-295); Potassium 4.0 mMol/L (3.4-5.1); Procalcitonin 0.04 ng/ml (0.0-0.49); Sodium 141 mMol/L (136-145); Thyroid Stimulating Hormone 2.03 uIU/mL (0.55-4.78); Total Protein 7.1 gm/dL (5.7-8.2); Troponin I < 0.020 ng/mL (0.0-0.045); eGFR > 60 See Note
[2025-01-20] MEDS: AZITHROMYCIN INJ 500 MG in SODIUM CHLORIDE 0.9% 250 ML 250 ML 250 MG IV (02:26)
[2025-01-20 02:51] LABS: Collection Type, Urine Clean Catch
--- NOTE | 2025-01-20 02:53 | PRELIM_ITS ---
Gallbladder ultrasound. January 20, 2025 at 0141 hours Clinical history: Right upper quadrant pain. Comparison: No prior study is available for comparison. Findings: The liver is enlarged (measuring 22.4 cm) and demonstrates diffuse increase in echogenicity with mild lobulated contour. No hepatic mass or intrahepatic ductal dilatation. The main portal vein is patent and demonstrates hepatopetal flow. The hepatic veins are patent. No gallbladder calculus, wall thickening or pericholecystic fluid is identified. The common duct is normal in caliber at 2 mm. The pancreas is unremarkable to the extent visualized. No free fluid is demonstrated on the submitted images. Impression: No sonographic evidence of cholelithiasis, acute cholecystitis or biliary obstruction. Hepatomegaly with diffuse fatty infiltration/steatosis. Suggest clinical correlation and follow up accordingly. Discussion Details: Results verbally communicated to : Dr. Ellsworth at 02:46 AM 01/20/2025 Report Electronically Signed By: Jaswant Joseph 01/20/2025 2:52:57 AM [EST]
[2025-01-20 03:11] LABS: Bilirubin,Urine Negative (Negative); Blood,Urine Negative (Negative); Clarity,Urine Clear (Clear/Hazy); Color,Urine Lt-Yellow (Lt Yel-Yel); Culture Indicated,Urine Not Indicated; Glucose, Urine Negative (Negative); Ketones,Urine Negative (Negative); Leukocyte Esterase,Urine Negative (Negative); Nitrite,Urine Negative (Negative); PH,Urine 6.0 (5.0-7.0); Protein,Urine Trace (Neg - Trace); RBC,Urine 4 /hpf (0-3); Specific Gravity,Urine 1.031 (1.001-1.035); Squamous Epithelial Cell,Urine 3 /hpf (0-5); Urobilinogen,Urine Negative mg/dL (0.0-1.0); WBC,Urine 4 /hpf (0-5)
[2025-01-20 03:22] LABS: Alcohol, Urine Negative (Negative); Amphetamine/Methamp Scrn,U Negative (Negative); Barbiturate Screen,Urine Negative (Negative); Benzodiazepines Screen,Urine Negative (Negative); Benzoylecgonine Screen, Ur Negative (Negative); Fentanyl Screen,Urine Negative (Negative); Opiate Screen,Urine Negative (Negative); THC Screen,Urine Negative (Negative)
[2025-01-20 03:25] LABS: B-Type Natriuretic Peptide < 20 pg/mL (0-100)
--- NOTE | 2025-01-20 03:39 | PRELIM_ITS ---
CT scan of the chest, abdomen and pelvis without intravenous contrast (axial sections with sagittal and coronal reformats) January 20, 2025 at 0222 hours Clinical History: Shortness of breath and upper abdominal pain. Comparison: Correlated with the prior ultrasound gallbladder dated January 20, 2025. Findings: Bibasilar streaky atelectasis is present. Mild emphysematous changes are noted in the lungs with subpleural bullae at the lung apices. There is a 3 mm noncalcified nodule in the right middle lobe, which may represent a granuloma. There is no pleural effusion or pneumothorax. The aorta is unremarkable on this noncontrast study. No evidence of mediastinal mass or lymphadenopathy. There is no pericardial effusion. There is punctate (1 to 2 mm) nonobstructing bilateral renal calculi. No ureteric calculus or hydroureteronephrosis. There is an exophytic right renal cortical cyst at the lower pole, measuring 1 cm. There is right renal cortical scarring with focal parenchymal calcification, measuring 5 mm, likely due to sequelae of pyelonephritis. The liver, gallbladder, spleen, pancreas and adrenals are unremarkable on this noncontrast study. No evidence of bowel obstruction. There are multiple colonic diverticula without evidence of diverticulitis. The appendix is within normal limits (images [id number]). There is fusiform aneurysm of the infrarenal abdominal aorta, measuring 4 cm in cross sectional diameter and 6 cm in craniocaudal dimension. There is no evidence of periaortic or retroperitoneal hemorrhage. The urinary bladder is partially distended and shows mild wall thickening; possibility of cystitis cannot be excluded. The prostate is mildly enlarged and demonstrates dystrophic calcifications. There is no free fluid or free air. There are bilateral inguinal hernias containing fat. Degenerative changes are identified in the spine. There is diffuse osteopenia. Patchy sclerosis is noted in the left femoral head, consistent with avascular necrosis. Please note that evaluation of soft tissue/vascular structures and bowel loops is limited due to absence of IV and oral contrast. Impression: 1. Mild pulmonary emphysema. 2. No evidence of segmental lung consolidation or pleural effusion. 3. Punctate nonobstructing bilateral renal calculi. No ureteric calculus or ureteral obstruction. 4. Partially distended urinary bladder with mild wall thickening; possibility of cystitis cannot be excluded. 5. 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 No evidence of periaortic or retroperitoneal hemorrhage. 6. Other findings as described above. Suggest clinical correlation and follow up accordingly. Report Electronically Signed By: Jaswant Joseph 01/20/2025 3:38:56 AM [EST]
--- NOTE | 2025-01-20 03:46 | PRELIM_ITS ---
CT scan of the head without intravenous contrast (axial sections with sagittal and coronal reformats) January 20, 2025 0218 hours Clinical history: Headache. Compared with the prior study dated July 17, 2024 Findings: There is no evidence of intracranial hemorrhage, mass effect or midline shift. There are periventricular white matter hypodensities, compatible with chronic small vessel ischemia. There is mild volume loss. The calvarium is unremarkable. The mastoid air cells and the visualized paranasal sinuses are clear. Impression: 1. No evidence of intracranial hemorrhage, mass effect or midline shift. 2. Periventricular chronic small vessel ischemia and volume loss. 3. Other findings as described above. Suggest clinical correlation and follow up accordingly. Report Electronically Signed By: Jaswant Joseph 01/20/2025 3:45:27 AM [EST]
[2025-01-20 03:56] VITALS: BP 118/78; PULSE 72; RESP 18; TEMP 36.7; O2SAT 94
[2025-01-20 13:49] LABS: Cocci Serology, IgM Negative (Negative)
[2025-01-21 12:39] LABS: Cocci Serology, IgG Negative (Negative)
== END 2025-01-20 04:35 | disposition home or self-care (01) ==
PROVIDERS: Emergency Provider Emergency Medicine; PCP Physician Assistant
DX: J44.1 Chronic obstructive pulmonary disease with (acute) exacerbation (principal); E78.5 Hyperlipidemia, unspecified; I10 Essential (primary) hypertension
CPT/HCPCS: 36415; 70450; 71045; 71250; 74176; 76705; 80053; 80307; 80320; 81001; 82140; 82248; 83605; 83690; 83735; 83880; 84145; 84443; 84484; 85025; 85652; 86140; 86331; 86635; 87040; 87502; 87635; 93005; 94640; 96361; 96365; 96375; 99284; A9270; J0456; J2405; J2470; J2919; J3490; J7030; J7050; G0480